=== PATIENT | female | born 1945 | race African-American/Black ===

== ENCOUNTER 2020-01-02 11:23 | Emergency (ER) | payer MEDICARE, OTHER ==
[~2020-01-02] VITALS: Ht 167.6 cm; Wt 67.0 kg
[2020-01-02 12:10] VITALS: BP 138/80
[2020-01-02 15:53] LABS: BASOPHILS % 0.7 % (0.0-2.0); EOSINOPHILS % 4.6 % (0.0-5.0); HEMOGLOBIN. 14.5 g/dL (12.0-16.0); LYMPHOCYTES % 39.6 % (20.0-50.0); MEAN CORPUSCULAR HEMOGLOBIN 31.8 pg (28.0-32.0); MEAN CORPUSCULAR VOLUME 94.3 fL (81.0-99.0); MEAN PLATELET VOLUME 9.1 fl (7.4-10.4); NEUTROPHILS % 47.1 % (40.0-76.0); PLATELET 168 x1000/uL (130-400); RED BLOOD CELL COUNT 4.56 mill/uL (4.2-5.4); RED CELL DISTRIBUTION WIDTH 14.6 % (11.6-14.6)
[2020-01-02 15:59] LABS: CHLORIDE 107 mEq/L (98-107)
[2020-01-02 16:03] LABS: ETHANOL BLOOD < 10 mg/dL
== END 2020-01-02 19:10 | disposition left against medical advice (07) ==
LOC: ER 11:23 → EDBD 11:23 → ER 19:10
DX: R53.1 Weakness (principal)
CPT/HCPCS: 36415; 71045; 80053; 80320; 83880; 84484; 85025; 99285; G0480

== ENCOUNTER 2020-01-06 11:05 | Inpatient (IN) | payer MEDICARE, OTHER ==
[~2020-01-06] VITALS: Ht 162.6 cm; Wt 48.5 kg
[2020-01-06 11:59] VITALS: BP 136/79
[2020-01-06 12:00] VITALS: BP 136/79
[2020-01-06] MEDS ORDERED: MAGNESIUM/ALUMINUM HYDROXIDE/SIMETHICONE 30ML UDC PO PRN (12:30)
[2020-01-06] MEDS ORDERED: KETOROLAC 15MG/ML VIAL IV PRN (12:30)
[2020-01-06] MEDS ORDERED: CLONIDINE 0.1MG TABLET PO PRN (12:30)
[2020-01-06] MEDS ORDERED: NITROGLYCERIN 0.4MG TABLET SL SL PRN (12:30)
[2020-01-06] MEDS ORDERED: ACETAMINOPHEN 325MG TABLET PO PRN ×2 (12:30)
[2020-01-06] MEDS ORDERED: IPRATROPIUM/ALBUTEROL 0.5-3(2.5)MG/3ML NEB HHN PRN (12:30)
[2020-01-06] MEDS ORDERED: GUAIFENESIN 200MG/10ML SUGAR FREE UDC PO PRN (12:30)
[2020-01-06 20:00] VITALS: BP 151/79
[2020-01-06] MEDS: ATORVASTATIN CALCIUM 10MG TABLET PO SCH (20:32)
[2020-01-06] MEDS ORDERED: ZOLPIDEM TARTRATE 5MG TABLET PO PRN (21:00)
[2020-01-07 08:00] VITALS: BP 133/77
[2020-01-07] MEDS: CYANOCOBALAMIN 1000MCG/ML VIAL IM SCH (08:42)
[2020-01-07] MEDS: ENOXAPARIN 40MG/0.4ML SYR SUBCUT SCH (08:42)
[2020-01-07] MEDS: CLOPIDOGREL 75MG TABLET PO SCH (08:42)
[2020-01-07] MEDS: FAMOTIDINE 20MG TABLET PO SCH (08:43)
[2020-01-07] MEDS ORDERED: FAMOTIDINE 20MG TABLET PO SCH (09:00)
[2020-01-07] MEDS ORDERED: LACTULOSE 20G/30ML UDC PO PRN (10:30)
[2020-01-07] MEDS ORDERED: TRAMADOL 50MG TABLET PO PRN (10:30)
[2020-01-07] MEDS ORDERED: BISACODYL 5MG TABLET PO PRN (10:30)
[2020-01-07 12:58] LABS: BASOPHILS % 0.8 % (0.0-2.0); EOSINOPHILS % 2.6 % (0.0-5.0); HEMATOCRIT. 42.3 % (36.0-48.0); HEMOGLOBIN. 14.5 g/dL (12.0-16.0); LYMPHOCYTES % 34.5 % (20.0-50.0); MEAN CORPUSCULAR HEMOGLOBIN 31.9 pg (28.0-32.0); MEAN PLATELET VOLUME 9.6 fl (7.4-10.4); MONOCYTES % 11.1 % (2.0-8.0); PLATELET 168 x1000/uL (130-400); RED BLOOD CELL COUNT 4.55 mill/uL (4.2-5.4); RED CELL DISTRIBUTION WIDTH 14.4 % (11.6-14.6)
[2020-01-07 13:12] LABS: CHLORIDE 107 mEq/L (98-107)
[2020-01-07] MEDS ORDERED: POTASSIUM CHLORIDE 20MEQ TABLET SR PO NR (14:00)
[2020-01-07 20:00] VITALS: BP 151/76
[2020-01-07] MEDS: ATORVASTATIN CALCIUM 10MG TABLET PO SCH (20:30)
[2020-01-08 08:00] VITALS: BP 127/85
[2020-01-08] MEDS: CLOPIDOGREL 75MG TABLET PO SCH (08:33)
[2020-01-08] MEDS: ENOXAPARIN 40MG/0.4ML SYR SUBCUT SCH (08:37)
[2020-01-08 09:04] LABS: BASOPHILS % 1.1 % (0.0-2.0); EOSINOPHILS % 5.3 % (0.0-5.0); HEMATOCRIT. 48.2 % (36.0-48.0); HEMOGLOBIN. 16.2 g/dL (12.0-16.0); LYMPHOCYTES % 39.8 % (20.0-50.0); MEAN CORPUSCULAR HEMOGLOBIN 31.6 pg (28.0-32.0); MEAN CORPUSCULAR VOLUME 94.1 fL (81.0-99.0); MEAN PLATELET VOLUME 9.7 fl (7.4-10.4); MONOCYTES % 10.2 % (2.0-8.0); NEUTROPHILS % 43.6 % (40.0-76.0); PLATELET 183 x1000/uL (130-400); RED BLOOD CELL COUNT 5.12 mill/uL (4.2-5.4); RED CELL DISTRIBUTION WIDTH 14.5 % (11.6-14.6)
[2020-01-08 09:19] LABS: CHLORIDE 109 mEq/L (98-107)
[2020-01-08 09:26] LABS: TOTAL IRON BINDING CAPACITY 351 ug/dL (250-450)
[2020-01-08 09:28] LABS: PHOSPHORUS 3.5 mg/dL (2.5-4.9)
[2020-01-08 09:30] LABS: CREATINE KINASE 372 IU/L (26-192)
[2020-01-08] MEDS: CYANOCOBALAMIN 1000MCG/ML VIAL IM SCH (09:31)
[2020-01-08] MEDS: FAMOTIDINE 20MG TABLET PO SCH (17:50)
[2020-01-08 20:00] VITALS: BP 156/83
[2020-01-08] MEDS: ATORVASTATIN CALCIUM 10MG TABLET PO SCH (21:17)
[2020-01-09 07:05] LABS: CHLORIDE 110 mEq/L (98-107)
[2020-01-09 08:00] VITALS: BP 120/76
[2020-01-09] MEDS: ENOXAPARIN 40MG/0.4ML SYR SUBCUT SCH (10:04)
[2020-01-09] MEDS: FAMOTIDINE 20MG TABLET PO SCH (10:04)
[2020-01-09] MEDS: DOCUSATE SODIUM 100MG CAPSULE PO PRN (10:04)
[2020-01-09] MEDS: CLOPIDOGREL 75MG TABLET PO SCH (10:05)
[2020-01-09] MEDS: CYANOCOBALAMIN 1000MCG/ML VIAL IM SCH (10:05)
[2020-01-09 13:10] LABS: BASOPHILS % 0.9 % (0.0-2.0); EOSINOPHILS % 3.3 % (0.0-5.0); HEMOGLOBIN. 14.9 g/dL (12.0-16.0); LYMPHOCYTES % 37.5 % (20.0-50.0); MEAN CORPUSCULAR HEMOGLOBIN 31.8 pg (28.0-32.0); MEAN CORPUSCULAR VOLUME 93.6 fL (81.0-99.0); MEAN PLATELET VOLUME 9.8 fl (7.4-10.4); MONOCYTES % 11.3 % (2.0-8.0); PLATELET 186 x1000/uL (130-400); RED BLOOD CELL COUNT 4.69 mill/uL (4.2-5.4); RED CELL DISTRIBUTION WIDTH 14.8 % (11.6-14.6)
[2020-01-09 20:00] VITALS: BP 128/79
[2020-01-09] MEDS: ATORVASTATIN CALCIUM 10MG TABLET PO SCH (21:25)
[2020-01-09] MEDS: POLYETHYLENE GLYCOL 3350 (17GM) 1 DOSE PACK PO SCH (21:25)
[2020-01-09] MEDS: AMLODIPINE 5MG TABLET PO SCH (21:25)
[2020-01-10 08:00] VITALS: BP 126/69
[2020-01-10] MEDS: ENOXAPARIN 40MG/0.4ML SYR SUBCUT SCH (09:00)
[2020-01-10] MEDS: AMLODIPINE 5MG TABLET PO SCH ×2 (09:00→22:10)
[2020-01-10] MEDS: FAMOTIDINE 20MG TABLET PO SCH (09:00)
[2020-01-10] MEDS: CLOPIDOGREL 75MG TABLET PO SCH (09:00)
[2020-01-10] MEDS: CYANOCOBALAMIN 1000MCG/ML VIAL IM SCH (09:00)
[2020-01-10] MEDS: DOCUSATE SODIUM 100MG CAPSULE PO PRN (18:14)
[2020-01-10 20:00] VITALS: BP 118/68
[2020-01-10] MEDS: POLYETHYLENE GLYCOL 3350 (17GM) 1 DOSE PACK PO SCH (22:10)
[2020-01-10] MEDS: ATORVASTATIN CALCIUM 10MG TABLET PO SCH (22:10)
[2020-01-11 06:50] LABS: BASOPHILS % 0.9 % (0.0-2.0); EOSINOPHILS % 1.9 % (0.0-5.0); HEMATOCRIT. 42.3 % (36.0-48.0); HEMOGLOBIN. 14.2 g/dL (12.0-16.0); LYMPHOCYTES % 25.3 % (20.0-50.0); MEAN CORPUSCULAR HEMOGLOBIN 31.3 pg (28.0-32.0); MEAN CORPUSCULAR VOLUME 93.5 fL (81.0-99.0); MEAN PLATELET VOLUME 9.8 fl (7.4-10.4); MONOCYTES % 8.6 % (2.0-8.0); NEUTROPHILS % 63.3 % (40.0-76.0); PLATELET 196 x1000/uL (130-400); RED BLOOD CELL COUNT 4.52 mill/uL (4.2-5.4); RED CELL DISTRIBUTION WIDTH 14.5 % (11.6-14.6)
[2020-01-11 07:14] LABS: CHLORIDE 109 mEq/L (98-107)
[2020-01-11 07:26] LABS: PHOSPHORUS 3.9 mg/dL (2.5-4.9)
[2020-01-11 07:29] LABS: CREATINE KINASE 352 IU/L (26-192)
[2020-01-11 08:00] VITALS: BP 140/70
[2020-01-11] MEDS: AMLODIPINE 5MG TABLET PO SCH ×2 (09:57→21:04)
[2020-01-11] MEDS: CLOPIDOGREL 75MG TABLET PO SCH (09:57)
[2020-01-11] MEDS: CYANOCOBALAMIN 1000MCG/ML VIAL IM SCH (09:57)
[2020-01-11] MEDS: ENOXAPARIN 40MG/0.4ML SYR SUBCUT SCH (09:58)
[2020-01-11] MEDS: FAMOTIDINE 20MG TABLET PO SCH (09:58)
[2020-01-11 20:00] VITALS: BP 116/71
[2020-01-11] MEDS: POLYETHYLENE GLYCOL 3350 (17GM) 1 DOSE PACK PO SCH (21:00)
[2020-01-11] MEDS: ATORVASTATIN CALCIUM 10MG TABLET PO SCH (21:04)
[2020-01-12 08:00] VITALS: BP 108/64
[2020-01-12] MEDS: AMLODIPINE 5MG TABLET PO SCH ×2 (08:52→22:17)
[2020-01-12] MEDS: CLOPIDOGREL 75MG TABLET PO SCH (08:57)
[2020-01-12] MEDS: FAMOTIDINE 20MG TABLET PO SCH (08:57)
[2020-01-12] MEDS: ENOXAPARIN 40MG/0.4ML SYR SUBCUT SCH (08:57)
[2020-01-12 20:00] VITALS: BP 133/76
[2020-01-12] MEDS: ATORVASTATIN CALCIUM 10MG TABLET PO SCH (22:17)
[2020-01-12] MEDS: POLYETHYLENE GLYCOL 3350 (17GM) 1 DOSE PACK PO SCH (22:19)
[2020-01-13 08:00] VITALS: BP 124/70
[2020-01-13] MEDS: CLOPIDOGREL 75MG TABLET PO SCH (08:56)
[2020-01-13] MEDS: AMLODIPINE 5MG TABLET PO SCH ×2 (08:56→21:11)
[2020-01-13] MEDS: FAMOTIDINE 20MG TABLET PO SCH (08:56)
[2020-01-13] MEDS: ENOXAPARIN 40MG/0.4ML SYR SUBCUT SCH (08:57)
[2020-01-13 14:14] LABS: 25-HYDROXY VITAMIN D3 2.5 ng/mL (.)
[2020-01-13 20:00] VITALS: BP 161/65
[2020-01-13] MEDS: POLYETHYLENE GLYCOL 3350 (17GM) 1 DOSE PACK PO SCH (21:09)
[2020-01-13] MEDS: ATORVASTATIN CALCIUM 10MG TABLET PO SCH (21:10)
[2020-01-14 06:40] LABS: BASOPHILS % 0.9 % (0.0-2.0); EOSINOPHILS % 6.2 % (0.0-5.0); HEMATOCRIT. 44.6 % (36.0-48.0); HEMOGLOBIN. 14.9 g/dL (12.0-16.0); LYMPHOCYTES % 40.3 % (20.0-50.0); MEAN CORPUSCULAR HEMOGLOBIN 31.6 pg (28.0-32.0); MEAN CORPUSCULAR VOLUME 94.2 fL (81.0-99.0); MEAN PLATELET VOLUME 9.5 fl (7.4-10.4); MONOCYTES % 13.4 % (2.0-8.0); NEUTROPHILS % 39.2 % (40.0-76.0); PLATELET 196 x1000/uL (130-400); RED BLOOD CELL COUNT 4.73 mill/uL (4.2-5.4)
[2020-01-14 06:49] LABS: CHLORIDE 109 mEq/L (98-107)
[2020-01-14 07:03] LABS: PHOSPHORUS 3.8 mg/dL (2.5-4.9)
[2020-01-14 07:06] LABS: CREATINE KINASE 212 IU/L (26-192)
[2020-01-14 08:00] VITALS: BP 120/63
[2020-01-14] MEDS: FAMOTIDINE 20MG TABLET PO SCH (08:36)
[2020-01-14] MEDS: ENOXAPARIN 40MG/0.4ML SYR SUBCUT SCH (08:37)
[2020-01-14] MEDS: CLOPIDOGREL 75MG TABLET PO SCH (08:37)
[2020-01-14] MEDS: AMLODIPINE 5MG TABLET PO SCH ×2 (08:45→21:00)
[2020-01-14] MEDS ORDERED: ERGOCALCIFEROL 50000UNITS CAPSULE PO SCH (19:00)
[2020-01-14 20:00] VITALS: BP 117/70
[2020-01-14] MEDS: POLYETHYLENE GLYCOL 3350 (17GM) 1 DOSE PACK PO SCH (21:00)
[2020-01-14] MEDS: ATORVASTATIN CALCIUM 10MG TABLET PO SCH (21:19)
[2020-01-15 08:00] VITALS: BP 109/68
[2020-01-15] MEDS: FAMOTIDINE 20MG TABLET PO SCH (09:00)
[2020-01-15] MEDS: AMLODIPINE 5MG TABLET PO SCH ×2 (09:00→21:35)
[2020-01-15] MEDS: CLOPIDOGREL 75MG TABLET PO SCH (10:18)
[2020-01-15] MEDS: ENOXAPARIN 40MG/0.4ML SYR SUBCUT SCH (10:18)
[2020-01-15 20:00] VITALS: BP 124/73
[2020-01-15] MEDS: POLYETHYLENE GLYCOL 3350 (17GM) 1 DOSE PACK PO SCH (21:00)
[2020-01-15] MEDS: ATORVASTATIN CALCIUM 10MG TABLET PO SCH (21:35)
[2020-01-16 06:49] LABS: BASOPHILS % 0.6 % (0.0-2.0); EOSINOPHILS % 5.7 % (0.0-5.0); HEMATOCRIT. 43.8 % (36.0-48.0); HEMOGLOBIN. 14.6 g/dL (12.0-16.0); LYMPHOCYTES % 40.2 % (20.0-50.0); MEAN CORPUSCULAR HEMOGLOBIN 31.5 pg (28.0-32.0); MEAN CORPUSCULAR VOLUME 94.2 fL (81.0-99.0); MEAN PLATELET VOLUME 9.7 fl (7.4-10.4); MONOCYTES % 14.4 % (2.0-8.0); NEUTROPHILS % 39.1 % (40.0-76.0); PLATELET 212 x1000/uL (130-400); RED BLOOD CELL COUNT 4.65 mill/uL (4.2-5.4); RED CELL DISTRIBUTION WIDTH 14.2 % (11.6-14.6)
[2020-01-16 07:01] LABS: CHLORIDE 106 mEq/L (98-107)
[2020-01-16 08:12] VITALS: BP 94/62
[2020-01-16] MEDS: AMLODIPINE 5MG TABLET PO SCH (08:22)
[2020-01-16] MEDS: ENOXAPARIN 40MG/0.4ML SYR SUBCUT SCH (08:32)
[2020-01-16] MEDS: CLOPIDOGREL 75MG TABLET PO SCH (08:32)
[2020-01-16] MEDS ORDERED: FAMOTIDINE 40MG TABLET PO SCH (09:00)
[2020-01-16 09:47] VITALS: BP 94/62
[2020-01-18] MEDS ORDERED: CYANOCOBALAMIN 1000MCG/ML VIAL IM SCH (09:00)
== END 2020-01-16 11:41 | disposition home health service (06) | DRG 56 ==
PROVIDERS: ADMIT Physical Medicine & Rehabilitation Spinal Cord Injury Medicine; ATTEND Internal Medicine
DX: I69.351 Hemiplegia and hemiparesis following cerebral infarction affecting right dominant side (principal); I63.81 Other cerebral infarction due to occlusion or stenosis of small artery; M62.82 Rhabdomyolysis; R41.4 Neurologic neglect syndrome; I25.3 Aneurysm of heart; M21.371 Foot drop, right foot; R47.1 Dysarthria and anarthria; R13.10 Dysphagia, unspecified; E78.00 Pure hypercholesterolemia, unspecified; I10 Essential (primary) hypertension; R53.81 Other malaise; E53.8 Deficiency of other specified B group vitamins; M24.574 Contracture, right foot; E78.5 Hyperlipidemia, unspecified; E11.9 Type 2 diabetes mellitus without complications; I66.23 Occlusion and stenosis of bilateral posterior cerebral arteries; E87.6 Hypokalemia; E55.9 Vitamin D deficiency, unspecified; R26.9 Unspecified abnormalities of gait and mobility; R26.2 Difficulty in walking, not elsewhere classified; Z79.899 Other long term (current) drug therapy; Z79.02 Long term (current) use of antithrombotics/antiplatelets; Z79.51 Long term (current) use of inhaled steroids
CPT/HCPCS: 36415; 80048; 80053; 82306; 82550; 82728; 83540; 83550; 83735; 84100; 85025; 92523; 92610; 93970; 97110; 97112; 97116; 97162; 97167; 97530; 97535; J1650; J1885; J3420